=== PATIENT | female | born 1990 | race Caucasian/White ===

== ENCOUNTER 2019-01-20 08:50 | Emergency (ER) | payer MEDICAID ==
[2019-01-20] MEDS: LIDOCAINE 1% (MPF) 5 ML VIAL INFIL (09:54)
[2019-01-20] MEDS: CEFTRIAXONE 1 GM INJ IM (09:54)
== END 2019-01-20 10:17 | disposition home or self-care (01) ==
LOC: FTE 10:17
DX: J03.90 Acute tonsillitis, unspecified (principal)
CPT/HCPCS: 96372; 99284-25